=== PATIENT | male | born 1980 | race African-American/Black ===

== ENCOUNTER 2021-02-24 04:47 | Emergency (ER) | payer OTHER ==
[2021-02-24 05:11] VITALS: BP 149/81; TEMP 97.8; BMI 33.2
[2021-02-24 07:11] VITALS: PULSE 91
== END 2021-02-24 07:12 | disposition home or self-care (01) ==
LOC: JER 04:47
DX: M25.512 Pain in left shoulder (principal); M54.2 Cervicalgia
CPT/HCPCS: 70450-TC; 71046-TC-FY; 72125-TC; 73030-TC-LT-FY; 93005; 93010; 99285-25